=== PATIENT | female | born 1995 | race Caucasian/White ===

== ENCOUNTER 2016-04-21 21:01 | Emergency (ER) | payer OTHER ==
[~2016-04-21] VITALS: Ht 157.5 cm; Wt 104.5 kg
[2016-04-21 21:06] VITALS: Ht 157.5 cm; Wt 104.5 kg
--- NOTE | 2016-04-22 01:50 | RADRPT ---
PROCEDURE: US gallbladder . CLINICAL INDICATION: Abdominal pain. TECHNIQUE: Multiple real-time images were acquired of the patient's abdomen utilizing a high resol ution transducer. COMPARISON: None FINDINGS: There are multiple gallstones. There is no pericholecystic fluid or gallbladder wall thickening. Gallbladder wall measures 2 mm The common bile duct measures 4 mm in maximal dimension. No free fluid is identified. Liver measures 193 mm and is enlarged. Fatty infiltration of the liver. Right kidney measures 136 mm, and there is no evident renal mass or hydronephrosis. Likely a nonobs tructing calculi within the right kidney. IMPRESSION: 1. Multiple gallstones are seen, and otherwise, there is no evident acute process in the gallbladde r. 2. Enlarged liver with fatty infiltration. RPTAT: [facility] Physician Sharmin Date Time Electronically viewed and signed by Physician Sharmin on 04/22/2016 01:50 RS/
[2016-04-22 02:01] LABS: ADD UMIC YES; URINE BILIRUBIN (Dip) 1+ (NEGATIVE); URINE BLOOD (Dip) TRACE (NEGATIVE); URINE COLOR YELLOW (YELLOW); URINE GLUCOSE (Dip) NEGATIVE (NEGATIVE); URINE KETONES (Dip) TRACE (NEGATIVE); URINE LEUKOCYTE ESTERASE (Dip) TRACE (NEGATIVE); URINE NITRITE (Dip) NEGATIVE (NEGATIVE); URINE TOTAL PROTEIN (Dip) NEGATIVE (NEGATIVE); URINE UROBILINOGEN (Dip) >8.0 E.U./dL (0.1-1.0)
[2016-04-22 02:05] LABS: ALBUMIN 4.5 g/dl (3.3-4.9)
[2016-04-22 02:06] LABS: POTASSIUM 4.5 mmol/L (3.5-5.1)
[2016-04-22 02:08] LABS: ALBUMIN/GLOBULIN RATIO 1.07; BILIRUBIN,INDIRECT 0.2 mg/dl (0-1.1); BILIRUBIN,TOTAL 0.2 mg/dl (0.2-1.3); CREATININE 0.72 mg/dl (0.44-1.00); TOTAL PROTEIN 8.7 g/dl (6.1-8.1)
[2016-04-22 02:09] LABS: CALCIUM 9.6 mg/dl (8.4-10.2)
[2016-04-22 02:27] LABS: BASOPHIL # 0.1 10^3/ul (0.0-0.1); BASOPHILS % 0.7 % (0.0-2.0); EOSINOPHILS # 0.1 10^3/ul (0.0-0.5); EOSINOPHILS % 0.9 % (0.0-7.0); HEMATOCRIT 42.2 % (37.0-47.0); HEMOGLOBIN 13.7 g/dl (12.0-16.0); LYMPHOCYTES # 3.9 10^3/ul (0.8-2.9); LYMPHOCYTES % 33.2 % (15.0-51.0); MEAN CORPUSCULAR HEMOGLOBIN 29.7 pg (29.0-33.0); MEAN CORPUSCULAR HGB CONC 32.6 g/dl (32.0-37.0); MEAN PLATELET VOLUME 8.9 fl (7.4-10.4); MONOCYTE # 0.7 10^3/ul (0.3-0.9); MONOCYTES % 6.3 % (0.0-11.0); NEUTROPHIL # 6.8 10^3/ul (1.6-7.5); NEUTROPHILS % 58.9 % (39.0-77.0); PLATELET COUNT 322 10^3/UL (140-440); RED BLOOD COUNT 4.63 10^6/ul (4.20-5.40); RED CELL DISTRIBUTION WIDTH 13.4 % (11.5-14.5); UNCORRECTED WBC 11.6 10^3/ul (4.8-10.8); WHITE BLOOD COUNT 11.6 10^3/ul (4.8-10.8)
[2016-04-22 02:28] LABS: CONDITION 1
[2016-04-22] MEDS ORDERED: DICY10CA60 PO (02:59)
[2016-04-22] MEDS ORDERED: IBUP-1542 PO (02:59)
--- NOTE | 2016-04-22 03:08 | ERD ---
ER Documentation Chief Complaint Date/Time DATE: 04/22/16 TIME: 03:04 Chief Complaint RUQ abd pain x 2 days HPI 20-year-old female with a past medical history of fatty liver and asthma presents to the ED complaining of right upper quadrant pain that started yesterday. States that the pain as pressure-like and feels like it is worse when she standing. States that at times she gets pain that is a stabbing sensation. Rates it a 8 out of 10. States that it is worse when she is laying down and eating. Denies any fever, chills, chest pain, shortness of breath, wheezing, constipation. Reports she has normal bowel movements daily. States that her last menses was 1 week ago. ROS All systems reviewed and are negative except as per history of present illness. Medications Home Meds Active Scripts Ibuprofen* (Motrin*) 600 Mg Tab, 600 MG PO Q6, #30 TAB Prov:WILIAN RICO PA-C 04/22/16 Dicyclomine Hcl* (Bentyl*) 10 Mg Capsule, 10 MG PO QID, #30 CAP Prov:WILIAN RICO PA-C 04/22/16 Allergies Allergies: Coded Allergies: No Known Allergy (Unverified , 04/21/16) PMhx/Soc Hx Alcohol Use: No Hx Substance Use: No Hx Tobacco Use: No Smoking Status: Unknown if ever smoked Physical Exam Vitals Vital Signs Date Time Temp Pulse Resp B/P Pulse Ox O2 Delivery O2 Flow Rate FiO2 04/21/16 21:06 98.3 75 20 124/63 100 Physical Exam Const: [id number], well-nourished. In no acute distress. Head: Atraumatic, normocephalic Eyes: Normal Conjunctiva without injection. No purulent discharge. ENT: Normal external ear, nose. Moist oropharynx without tonsillar exudates. Non -erythematous pharynx. Uvula midline. No drooling. No trismus. Neck: No cervical midline tenderness. Full range of motion. No meningismus. No cervical lymphadenopathy. No JVD. Resp: Clear to auscultation bilaterally. No wheezing, rhonchi, rales, or crackles. No accessory muscle use. No retractions. Cardio: Regular rate and rhythm. No murmurs, rubs or gallops. Abd: Soft, tender to palpation of the right upper quadrant, non distended. Normal bowel sounds. No palpable masses. No rebound tenderness. No guarding. Negative McBurney's point. Negative psoas sign. Negative obturator sign. Skin: No petechiae or rashes Back: No midline tenderness. No CVA tenderness. Ext: No cyanosis, or edema. Neur: Awake and alert. Normal gait. Normal coordination. Psych: Normal Mood and Affect Result Diagram: 04/22/1612904/22/16 013 Results 24 hrs Laboratory Tests Test 04/22/16 01:30 Alanine Aminotransferase (ALT/SGPT) 626IU/L Albumin 4.5g/dl Albumin/Globulin Ratio 1.07 Alkaline Phosphatase 133IU/L Anion Gap 17 Aspartate Amino Transf (AST/SGOT) 660IU/L Basophils # 0.110^3/ul Basophils % 0.7% Blood Urea Nitrogen 12mg/dl Calcium Level 9.6mg/dl Carbon Dioxide Level 30mmol/L Chloride Level 104mmol/L Creatinine 0.72mg/dl Direct Bilirubin 0.00mg/dl Eosinophils # 0.110^3/ul Eosinophils % 0.9% Globulin 4.20g/dl Glucose Level 116mg/dl Hematocrit 42.2% Hemoglobin 13.7g/dl Indirect Bilirubin 0.2mg/dl Lipase 4954U/L Lymphocytes # 3.910^3/ul Lymphocytes % 33.2% Mean Corpuscular Hemoglobin 29.7pg Mean Corpuscular Hemoglobin Concent 32.6g/dl Mean Corpuscular Volume 91.0fl Mean Platelet Volume 8.9fl Monocytes # 0.710^3/ul Monocytes % 6.3% Neutrophils # 6.810^3/ul Neutrophils % 58.9% Nucleated Red Blood Cells # 0.010^3/ul Nucleated Red Blood Cells % 0.0/100WBC Platelet Count 68542^3/UL Potassium Level 4.5mmol/L Red Blood Count 4.6310^6/ul Red Cell Distribution Width 13.4% Sodium Level 146mmol/L Total Bilirubin 0.2mg/dl Total Protein 8.7g/dl Urine Bilirubin 1+ Urine Clarity CLEAR Urine Color YELLOW Urine Glucose NEGATIVE% Urine Hemoglobin TRACE Urine Ictotest Pending Urine Ketones TRACE Urine Leukocyte Esterase TRACE Urine Microscopic RBC Pending Urine Microscopic WBC Pending Urine Nitrite NEGATIVE Urine Specific [place] >=1.030 Urine Total Protein NEGATIVE Urine Urobilinogen >8.0 E.U./dL Urine pH 6.0 White Blood Count 11.610^3/ul Procedures/MDM 20-year-old female with a past medical history of fatty liver, asthma presents to the ED complaining of right upper quadrant pain. Patient is afebrile and nontoxic-appearing. Patient has normal vital signs. Patient was further worked up with CBC, CMP, lipase, UA, urine , all bladder ultrasound. Patient denied wanting any pain medications at this time. CBC: Mild leukocytosis of 11.6 likely due to stress reaction. No e/o anemia. CMP: No e/o severe acidosis, alkalosis, renal failure, diabetic ketoacidosis, liver disease Lipase within normal limits. Urine: No leukocyte esterase, no nitrites, no hematuria. Urine : Negative PROCEDURE: US gallbladder . CLINICAL INDICATION: Abdominal pain. TECHNIQUE: Multiple real-time images were acquired of the patient's abdomen utilizing a high resolution transducer. COMPARISON: None FINDINGS: There are multiple gallstones. There is no pericholecystic fluid or gallbladder wall thickening. Gallbladder wall measures 2 mm The common bile duct measures 4 mm in maximal dimension. No free fluid is identified. Liver measures 193 mm and is enlarged. Fatty infiltration of the liver. Right kidney measures 136 mm, and there is no evident renal mass or hydronephrosis. Likely a nonobstructing calculi within the right kidney. IMPRESSION: 1. Multiple gallstones are seen, and otherwise, there is no evident acute process in the gallbladder. 2. Enlarged liver with fatty infiltration. Patient's pain could likely be due to biliary colic from the multiple gallstones found on the ultrasound. Transaminitis is likely due to the enlarged fatty liver. No elevated bilirubin. There is low suspicion for cholecystitis, choledocholithiasis, gallstone pancreatitis, pancreatitis or other emergent conditions.. A differential diagnosis considered includes but is not limited to gastritis, GERD, peptic ulcer disease, cholecystitis, choledocholithiasis, cholangitis, pancreatitis, appendicitis, bowel obstruction , ileus, volvulus, nephrolithiasis, pyelonephritis, hepatitis, perforated viscus , diverticulitis, abdominal hernia, acute abdomen, mesenteric ischemia or other emergent conditions. Discharge medications: Ibuprofen, Bentyl Follow up with primary care physician in 1-2 days for referral to [facility]. Instructed patient to return to the ED sooner for any worsening symptoms. Patient's questions were answered. Patient understood and agreed with discharge plan. Patient discharged stable. Departure Diagnosis: Primary Impression: Gallstones Condition: Stable Patient Instructions: Biliary Colic With Gallstone (Confirmed) Referrals: [facility] YOU HAVE RECEIVED A MEDICAL SCREENING EXAM AND THE RESULTS INDICATE THAT YOU DO NOT HAVE A CONDITION THAT REQUIRES URGENT TREATMENT IN THE EMERGENCY DEPARTMENT. FURTHER EVALUATION AND TREATMENT OF YOUR CONDITION CAN WAIT UNTIL YOU ARE SEEN IN YOUR DOCTORS OFFICE WITHIN THE NEXT 1-2 DAYS. IT IS YOUR RESPONSIBILITY TO MAKE AN APPOINTMENT FOR FOLOW-UP CARE. IF YOU HAVE A PRIMARY DOCTOR --you should call your primary doctor and schedule an appointment IF YOU DO NOT HAVE A PRIMARY DOCTOR YOU CAN CALL OUR PHYSICIAN REFERRAL HOTLINE AT IF YOU CAN NOT AFFORD TO SEE A PHYSICIAN YOU CAN CHOSE FROM THE FOLLOWING [facility] [address] [facility]. [facility] [address] [facility] [facility] [address] [facility] [address] [facility] [address] [facility]. [facility]. [address] [facility]. [facility] YOU HAVE RECEIVED A MEDICAL SCREENING EXAM AND THE RESULTS INDICATE THAT YOU DO NOT HAVE A CONDITION THAT REQUIRES URGENT TREATMENT IN THE EMERGENCY DEPARTMENT. FURTHER EVALUATION AND TREATMENT OF YOUR CONDITION CAN WAIT UNTIL YOU ARE SEEN IN YOUR DOCTORS OFFICE WITHIN THE NEXT 1-2 DAYS. IT IS YOUR RESPONSIBILITY TO MAKE AN APPOINTMENT FOR FOLOW-UP CARE. IF YOU HAVE A PRIMARY DOCTOR --you should call your primary doctor and schedule and appointment IF YOU DO NOT HAVE A PRIMARY DOCTOR YOU CAN CALL OUR PHYSICIAN REFERRAL HOTLINE AT . IF YOU CAN NOT AFFORD TO SEE A PHYSICIAN YOU CAN CHOSE FROM THE FOLLOWING [facility] INSTITUTIONS: [facility] [address] [place] [address] [facility] [address] [place] [address] [facility] + [facility] [address] [place] [address] [facility] Additional Instructions: FOLLOW UP WITH YOUR PRIMARY CARE PHYSICIAN in 2 days. Return to this facility if you are not improving as expected. WILIAN RICO PA-C Apr 22, 2016 03:08
[2016-04-22 03:25] LABS: ICTOTEST POSITIVE (NEGATIVE)
[2016-04-22 03:28] LABS: URINE RBCS 0-2 /HPF (0)
[2016-04-22 03:29] LABS: BACTERIA,URINE MODERATE; SQUAMOUS EPITHELIAL CELL,UR FEW
== END 2016-04-22 03:05 | disposition home or self-care (01) ==
LOC: FTE 21:01
DX: K80.20 Calculus of gallbladder without cholecystitis without obstruction (principal); J45.909 Unspecified asthma, uncomplicated
CPT/HCPCS: 36415; 76705; 80053; 81001; 83690; 85025; Z7502; 81003